=== PATIENT | female | born 1960 | race Caucasian/White ===

== ENCOUNTER → 2020-11-16 | Outpatient (CLI) | payer OTHER ==
[~2020-11-16] MED LIST: ALBUTEROL0.63 MG/3 INH; ALBUTEROL2.5 MG/3 M INH; DEXILANT60 MG PO; IBUPROFEN800 MG PO; MIRALAX17 GM PO; NEURONTIN 300300 MG PO; PREMARIN0.9 MG PO; PROAIR HFA8.5 GM INH; SYMBICORT 160-1 INHA INH; VITAMIN D32000 UNI1 PO; ZOCOR40 MG PO
== END ==
LOC: CT 08:00
DX: I77.1 Stricture of artery (principal); R91.1 Solitary pulmonary nodule
CPT/HCPCS: 36415; 70498; 71275; 82565; Q9967

== ENCOUNTER → 2021-06-14 | Outpatient (CLI) | payer OTHER | LOC: HEART 5 14:41 → EXRD 14:41 | DX: Z72.0 Tobacco use (principal); R94.2 Abnormal results of pulmonary function studies | CPT/HCPCS: 94060; 94729 ==

== ENCOUNTER → 2021-07-09 | Outpatient (CLI) | payer OTHER | LOC: HEART 5 05-01 09:00 → EXRD 05-28 13:00 → HEART 5 08:30 | DX: R07.9 Chest pain, unspecified (principal); M81.0 Age-related osteoporosis without current pathological fracture | CPT/HCPCS: 77080; 78452; 93306; A9502; J2785 ==

== ENCOUNTER → 2021-08-28 | Outpatient (CLI) | payer MEDICARE, OTHER ==
[~2021-08-28] VITALS: Ht 170.2 cm; Wt 61.7 kg
== END ==
LOC: OPSV 14:00
DX: M81.0 Age-related osteoporosis without current pathological fracture (principal)
CPT/HCPCS: 96360; 96365; J3489; J7030

== ENCOUNTER → 2022-03-19 | Outpatient (CLI) | payer MEDICARE, OTHER | LOC: EXRD 11:37 | DX: M81.0 Age-related osteoporosis without current pathological fracture (principal) | CPT/HCPCS: 77080 ==

== ENCOUNTER → 2022-03-19 | Outpatient (CLI) | payer MEDICARE, OTHER | LOC: MAMO 08:30 | DX: Z12.31 Encounter for screening mammogram for malignant neoplasm of breast (principal) | CPT/HCPCS: 77063; 77067 ==